=== PATIENT | male | born 1985 | race Hispanic/Latino ===

== ENCOUNTER 2016-09-04 04:05 | Emergency (ER) | payer OTHER ==
[2016-09-04 04:18] VITALS: BP 140/79; PULSE 81; RESP 16; TEMP 97.8; O2SAT 100
--- NOTE | 2016-09-04 04:47 | ED PDOC ---
HPI: CCC, URI, Sore Throat Time Seen by Provider: 09/04/16 04:44 Chief Complaint (Nursing): ENT Problem Chief Complaint (Provider): congestion, ear pain History Per: Patient Additional Complaint(s): 31-year-old male with no past medical history presents to emergency Department with pain to both ears and nasal congestion for 5 days. Ear pain not relieved by Motrin. Patient denies any dizziness or nausea. He also has had dry cough. Denies any recent travel. He denies fever or chills. Past Medical History Reviewed: Historical Data, Nursing Documentation, Vital Signs Vital Signs: Last Vital Signs Temp 97.8 F 09/04/16 04:16 Pulse 81 09/04/16 04:16 Resp 16 09/04/16 04:16 BP 140/79 09/04/16 04:16 Pulse Ox 100 09/04/16 04:47 - Medical History PMH: No Chronic Diseases - Surgical History Surgical History: Tonsillectomy - Family History Family History: States: No Known Family Hx - Living Arrangements Living Arrangements: With Family - Social History Current smoker - smoking cessation education provided: No Alcohol: Social Drugs: Denies - Home Medications Home Medications: Ambulatory Orders Medication Instructions Recorded Azithromycin [Zithromax] 250 mg PO DAILY #6 tab 09/04/16 traMADol [Ultram] 50 mg PO TID PRN #15 tab 09/04/16 - Allergies Allergies/Adverse Reactions: Allergies Allergy/AdvReac Type Severity Reaction Status Date / Time cefaclor [From Ceclor] Allergy RASH Verified 09/04/16 04:16 Review of Systems ROS Statement: Except As Marked, All Systems Reviewed And Found Negative Constitutional: Negative for: Fever, Chills ENT: Positive for: Ear Pain (bilateral), Nose Congestion. Negative for: Throat Pain, Throat Swelling Cardiovascular: Negative for: Chest Pain Respiratory: Positive for: Cough (dry, mild) Musculoskeletal: Negative for: Neck Pain Neurological: Negative for: Headache, Dizziness Physical Exam - Reviewed Nursing Documentation Reviewed: Yes Vital Signs Reviewed: Yes - Physical Exam Appears: Positive for: Well, Non-toxic, No Acute Distress Skin: Negative for: Rash Eye Exam: Positive for: Normal appearance, EOMI, PERRL ENT: Positive for: Nasal Congestion, Other (Tympanic members are bulging bilaterally with obscured landmarks and erythema, appearance consistent bilateral otitis media, canals are clear bilaterally). Negative for: Pharyngeal Erythema Cardiovascular/Chest: Positive for: Regular Rate, Rhythm Respiratory: Positive for: Normal Breath Sounds Neurologic/Psych: Positive for: Alert, Oriented, Gait (steady) - ECG O2 Sat by Pulse Oximetry: 100 Pulse Ox Interpretation: Normal Medical Decision Making Medical Decision Making: Impression: bilateral otitis media Plan: PO tramadol in ED Rx zithromax and tramadol. ENT referral provided. Disposition - Clinical Impression Clinical Impression: Bilateral otitis media - Patient ED Disposition Is Patient to be Admitted: No Counseled Patient/Family Regarding: Diagnosis, Need For Followup, Rx Given - Disposition Referrals: Kalpesh Nielsen MD [Staff Provider] - Disposition: Routine/Home Disposition Time: 06:10 Condition: STABLE Additional Instructions: Take rx meds as directed. Follow up with ear, nose and throat specialist in 2- 3 days. Prescriptions: traMADol [Ultram] 50 mg PO TID PRN #15 tab PRN Reason: Pain, Moderate (4-7) Azithromycin [Zithromax] 250 mg PO DAILY #6 tab Instructions: Otitis Media (ED)
== END 2016-09-04 06:19 | disposition home or self-care (01) ==
LOC: H.ER 04:05
DX: H66.93 Otitis media, unspecified, bilateral (principal)